=== PATIENT | male | born 1975 | race Caucasian/White ===

== ENCOUNTER 2017-09-05 23:16 | Emergency (ER) | payer SELFPAY ==
[2017-09-05 23:44] LABS: POC GLUCOSE 101 mg/dL (70-99)
[2017-09-06 00:27] LABS: ADD MAN DIFF? NO
[2017-09-06 00:29] LABS: BASO # 0.1 x10^3/uL (0.0-0.2); BASO % 1 % (0-3); EOS # 0.1 x10^3/uL (0.0-0.7); EOS % 1 % (0-3); HEMATOCRIT 48.3 % (39.0-53.0); HEMOGLOBIN 16.4 g/dL (13.0-17.5); LYMPH # 3.1 x10^3/uL (1.0-4.8); LYMPH % 31 % (24-48); MEAN CORPUSCULAR HEMOGLOBIN 32 pg (25-35); MEAN CORPUSCULAR HGB CONC 34 g/dL (31-37); MEAN CORPUSCULAR VOLUME 94 fL (79-100); MONO # 0.7 x10^3/uL (0.0-1.1); MONO % 7 % (0-9); NEUT % 61 % (31-73); PLATELET COUNT 228 x10^3/uL (140-400); RED BLOOD COUNT 5.14 x10^6/uL (4.30-5.70); RED CELL DISTRIBUTION WIDTH 14.4 % (11.5-14.5); WHITE BLOOD COUNT 9.9 x10^3/uL (4.0-11.0)
[2017-09-06 00:37] LABS: ANION GAP 11 (6-14); BLOOD UREA NITROGEN 7 mg/dL (8-26); BUN/CREATININE RATIO 8 (6-20); CALCIUM 8.9 mg/dL (8.5-10.1); CARBON DIOXIDE 23 mmol/L (21-32); CHLORIDE 104 mmol/L (98-107); CREATININE 0.9 mg/dL (0.7-1.3); GLUCOSE 92 mg/dL (70-99); POTASSIUM 3.6 mmol/L (3.5-5.1); SODIUM 138 mmol/L (136-145)
[2017-09-06 00:39] LABS: INR 0.9 (0.8-1.1)
[2017-09-06] MEDS: fentaNYL PF VIAL 100 MCG/2 ML VIAL IV (00:40)
[2017-09-06] MEDS: IV NORMAL SALINE 1000ML BAG 1,000 ML IV (00:40)
[2017-09-06] MEDS: DIPHTH,PERTUSS(ACELL),TET TOX 0.5 ML DISP.SYRIN. VAX IM (00:45)
[2017-09-06 00:48] LABS: ALBUMIN 4.1 g/dL (3.4-5.0); ALBUMIN/GLOBULIN RATIO 0.9 (1.0-1.7); ALK PHOS 107 U/L (46-116); ALT (SGPT) 49 U/L (16-63); AST (SGOT) 45 U/L (15-37); TOTAL BILIRUBIN 0.4 mg/dL (0.2-1.0); TOTAL PROTEIN 8.7 g/dL (6.4-8.2)
[2017-09-06 00:52] LABS: ETHANOL 321 mg/dL (0-10)
== END 2017-09-06 01:55 | disposition home or self-care (01) ==
LOC: ER 23:16
DX: S50.811A Abrasion of right forearm, initial encounter (principal); R10.9 Unspecified abdominal pain; R11.10 Vomiting, unspecified; R47.81 Slurred speech; R45.1 Restlessness and agitation; Z88.0 Allergy status to penicillin; W27.0XXA Contact with workbench tool, initial encounter; Y93.89 Activity, other specified; Y92.89 Other specified places as the place of occurrence of the external cause; Y99.8 Other external cause status
CPT/HCPCS: 36415; 71045; 80053; 82962; 85025; 85610; 90471; 90715; 96374; 99285; G0480; J3010; J7030